=== PATIENT | male | born 1965 | race Caucasian/White ===

== ENCOUNTER 2016-10-09 15:40 | Emergency (ER) | payer OTHER ==
[2016-10-09] MEDS ORDERED: ACETAMINOPHEN 325 MG TABLET PO ONE (16:53)
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
[2016-10-09 18:24] VITALS: BP 138/94
== END 2016-10-09 18:23 | disposition home or self-care (01) ==
LOC: ER 15:40
DX: S46.911A Strain of unspecified muscle, fascia and tendon at shoulder and upper arm level, right arm, initial encounter (principal); V49.50XA Passenger injured in collision with unspecified motor vehicles in traffic accident, initial encounter
CPT/HCPCS: 99284

== ENCOUNTER → 2018-01-13 | Outpatient (CLI) | payer OTHER ==
--- NOTE | 2018-01-13 18:31 | RADIOLOGY REPORT (SQ) ---
EXAM DESCRIPTION: MRI CERVICAL SPINE WITHOUT COMPLETED DATE/TIME: 01/13/2018 9:39 am REASON FOR STUDY: CERVICAL PAIN M54.5 LOW BACK PAIN M54.2 CERVICALGIA M51.36 OTHER INTERVERTEBRAL DISC DEGENERATION, LUMBAR REGION COMPARISON: None. TECHNIQUE: Sagittal and Axial imaging includes T1, T2, STIR and gradient echo sequences. LIMITATIONS: None. FINDINGS: ALIGNMENT: Reversal the normal cervical lordotic curve. VERTEBRAE: Intact. BONE MARROW: Reactive endplate changes C4-5, C5-6, C6-7. DISCS: Loss of height and T2 signal C4-5, C5-6, C6-7. HARDWARE: None in the spine. CORD AND BASE OF BRAIN: Normal in size and signal intensity. SOFT TISSUES: No soft tissue masses. C1-C2: No significant spinal stenosis. C2-C3: No significant spinal stenosis or exit foraminal stenosis. C3-C4: Disc osteophyte complex asymmetric right with mild narrowing of the right exit foramina. C4-C5: Disc osteophyte complex with flattening of the anterior thecal sac. Mild narrowing of the lef t exit foramina. C5-C6: Disc osteophyte complex with flattening of the anterior thecal sac. Mild narrowing of the rig ht exit foramina. C6-C7: No significant spinal stenosis or exit foraminal stenosis. C7-T1: No significant spinal stenosis or exit foraminal stenosis. UPPER THORACIC: Incompletely imaged. No significant spinal stenosis or exit foraminal stenosis. OTHER: No other significant finding. 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 Multilevel mild narrowing of the e xit foramina. No critical stenosis. TECHNICAL DOCUMENTATION: JOB ID: [id number] [employer]- All Rights Reserved Reading location - IP/workstation name: [email or web address]
--- NOTE | 2018-01-13 18:36 | RADIOLOGY REPORT (SQ) ---
EXAM DESCRIPTION: MRI LUMBAR SPINE WITHOUT COMPLETED DATE/TIME: 01/13/2018 9:39 am REASON FOR STUDY: CERVICAL PAIN / LOW BACK PAIN M54.5 LOW BACK PAIN M54.2 CERVICALGIA M51.36 OTHE R INTERVERTEBRAL DISC DEGENERATION, LUMBAR REGION COMPARISON: None. TECHNIQUE: Sagittal and Axial imaging includes T1, T2, STIR and gradient echo sequences. Coronal T2/ HASTE imaging. LIMITATIONS: None. FINDINGS: VISUALIZED UPPER ABDOMEN: Limited evaluation. No acute or suspicious findings suggested. SEGMENTATION: No transitional anatomy. The lowest well-developed disc space is labeled L5-S1. ALIGNMENT: Anatomic. VERTEBRAE: Intact. BONE MARROW: Reactive endplate changes L1- 2, L5-S1. DISC SIGNAL: Loss of height and T2 signal L1- 2, L5-S1. POSTERIOR ELEMENTS: Generally intact. No pars defect evident. HARDWARE: None in the spine. CORD AND CONUS: Normal in size and signal intensity. Conus at the appropriate level. SOFT TISSUES: No aortic aneurysm seen. No bulky retroperitoneal adenopathy or mass. No paraspinal mas s or fluid. L1-L2: Generalized disc bulge asymmetric left. Mild narrowing of the right exit foramina and moderat e narrowing of left exit foramina. Leftward mild flattening of the thecal sac. L2-L3: Generalized disc bulge asymmetric left. Moderate narrowing of left exit foramina. L3-L4: Generalized disc bulge with moderate narrowing of both exit foramina. L4-L5: Generalized disc bulge. Facet ligamentous hypertrophy. Moderate narrowing of the exit forami na. Marked central canal stenosis. L5-S1: Left paracentral to lateral disc protrusion. Flattening of the leftward thecal sac and intrat hecal roots including left S1. Marked deviation and flattening of the exiting left L5 root. LOWER THORACIC: Incompletely imaged. No stenosis seen. SACRUM: Visualized upper sacrum intact. OTHER: No other significant findings. IMPRESSION: Marked central canal stenosis L4-5 secondary to bulging disc and posterior element overg rowth Left paracentral to lateral disc protrusion L5-S1 with flattening of the leftward thecal sac and left S1 root as well as marked deviation and flattening of the exiting left L5 root. TECHNICAL DOCUMENTATION: JOB ID: [id number] [employer]- All Rights Reserved Reading location - IP/workstation name: [email or web address]
== END ==
LOC: RAD 08:10
PROVIDERS: ATTEND Physician Assistant
DX: M54.5 Low back pain (principal); M54.2 Cervicalgia; M51.36 Other intervertebral disc degeneration, lumbar region; R20.2 Paresthesia of skin
CPT/HCPCS: 72141; 72148

== ENCOUNTER → 2019-01-01 | Outpatient (CLI) | payer OTHER ==
--- NOTE | 2019-01-06 12:30 | Pulmonary Function Test ---
Pulmonary Function Test Date of Procedure:: 01/06/19 INDICATION:: Dyspnea Referring Provider: Dr. Kevin Boyd Supervisor [employer] Workers: Denisa Bethea, ROLL MACHINE OPERATOR, MUSEUM OR ZOO DIRECTOR - Report Spirometry: Spirometry: pre-FVC: 3.39 L 90% pre-FEV:1[2.63 L 86%] pre-FEV1/FVC %[78] predicted [81] [id number]%[2.45 L 75%] Impression: Obstructive defect implied by the decrease flow FEF 25-75%
== END ==
LOC: RT 08:40
DX: J44.9 Chronic obstructive pulmonary disease, unspecified (principal)
CPT/HCPCS: 94010

== ENCOUNTER 2019-12-30 19:30 | Emergency (ER) | payer MEDICAID, OTHER ==
[2019-12-30] MEDS ORDERED: TETRACAINE HCL 0.5% OPH SOLN 4 ML OU ONE (19:51)
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
[2019-12-30] MEDS ORDERED: ERYTHROMYCIN 0.5% OPH OINTMENT 3.5 GM TUBE OU ONE (21:25)
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
[2019-12-30 21:52] VITALS: BP 140/78
== END 2019-12-30 21:55 | disposition home or self-care (01) ==
LOC: ER 19:30
DX: H16.133 Photokeratitis, bilateral (principal); I10 Essential (primary) hypertension; I25.10 Atherosclerotic heart disease of native coronary artery without angina pectoris; I25.2 Old myocardial infarction; E78.00 Pure hypercholesterolemia, unspecified; F17.200 Nicotine dependence, unspecified, uncomplicated; Z98.41 Cataract extraction status, right eye; Z98.42 Cataract extraction status, left eye; Z79.02 Long term (current) use of antithrombotics/antiplatelets; Z79.899 Other long term (current) drug therapy
CPT/HCPCS: 99283; J3490 ×2